=== PATIENT | female | born 1950 | race African-American/Black ===

== ENCOUNTER → 2019-06-20 | Outpatient (CLI) | payer OTHER ==
[~2019-06-20] MED LIST: ADVIL100 M2 PO; CELEBREX 200 M200 MG PO; LISINOPRIL20 MG PO; NORVASC10 MG PO; TRIBENZOR 40-11 EACH PO; ZOCOR40 MG PO
== END ==
LOC: RAD 09:16
DX: R91.1 Solitary pulmonary nodule (principal)

== ENCOUNTER → 2020-12-28 | Outpatient (CLI) | payer OTHER | LOC: RAD 10:16 | PROVIDERS: ATTEND Internal Medicine | DX: R06.02 Shortness of breath (principal) ==

== ENCOUNTER → 2021-07-12 | Outpatient (CLI) | payer OTHER ==
--- NOTE | ~2021-07-12 | MCT ---
[facility] [address] [place] [address] METHACHOLINE CHALLENGE TEST Name: BARBARA BRUKS [id number] Admission: 07/12/21 Attend Phys: Adolfo Chowdhury MD Discharge: Date of : 50 Report #: [id number] THIS REPORT FOR: //name// Height: in Exam Date: Weight: lbs BTPS: X >> PRE BRONCHODILATOR: PREDICTED BEST %PRED FORCED VITAL CAPACITY (FRC) L LPM % FORCED EXP VOL/SEC (FEV1) L FEV/FVC % MAX MID-EXP FLOW (FEF 25-75) L/SEC L/SEC % PEAK EXP FLOW RATE (FEF MAX) L/MIN L/MIN MED-VC RATIO (FEF 50/FEF 50) .09 Baseline: Phenol Saline Level 1: 0.025 mg/ml BEST %PRED %CHANGE BEST %PRED %CHANGE FVC L % % FVC L % % FEV1 L % % FEV1 L % % Level 2: 0.25 mg/ml Level 3: 2.5 mg/ml BEST %PRED %CHANGE BEST %PRED %CHANGE FVC L % % FVC L % % FEV1 L % % FEV1 L % % . Level 4: 10 mg/ml Level 5: 25 mg/ml BEST %PRED %CHANGE BEST %PRED %CHANGE FVC L % % FVC L % % FEV1 L % % FEV1 L % % Post Bronchodilator: 1st Treatment Post Bronchodilator: 2nd Treatment BEST %PRED %CHANGE BEST %PRED %CHANGE FVC L % % FVC L % % FEV1 L % % FEV1 L % % Post Bronchodilator: 3rd Treatment BEST %PRED %CHANGE FVC L % % FEV1 L % % >> INTERPRETATION: [facility] [address] [place] [address] METHACHOLINE CHALLENGE TEST Name: BURKSBARBARA Room #: REG CL Mini#: [id number] Admission: 07/12/21 Attend Phys: Adolfo Chowdhury MD Discharge: Date of : 50 Report #: [id number] DATE OF SERVICE: 07/12/2021 METHACHOLINE CHALLENGE TEST The patient was studied at baseline and with increasing dilutions of methacholine. At level 5, there was no significant change in FEV1 or FVC. This is a negative methacholine challenge test. By: Adolfo Chowdhury MD /nt
== END ==
LOC: PUL 11:55
PROVIDERS: ATTEND Internal Medicine
DX: R05.9 Cough, unspecified (principal); Z20.822 Contact with and (suspected) exposure to COVID-19